=== PATIENT | female | born 1995 | race Caucasian/White ===

== ENCOUNTER 2023-12-03 23:42 | Emergency (ER) | payer SELFPAY ==
[2023-12-04] MEDS ORDERED: Ketorolac Tromethamine 30 MG (1 mL) VIAL ONE (00:31)
[2023-12-04] MEDS ORDERED: cefTRIAXone (ROCEPHIN) 1 GM VIAL ONE (00:31)
[2023-12-04] MEDS ORDERED: methylPREDNISolone Sod Succ/PF 125 MG/2 ML VIAL ONE (02:12)
[2023-12-04] MEDS ORDERED: Amoxicillin 250 mg/5 ml (250ML BOT) Oral Susp. PO SCH (02:15)
== END 2023-12-04 02:23 | disposition home or self-care (01) ==
LOC: CSHERS 23:42
DX: J02.9 Acute pharyngitis, unspecified (principal)
CPT/HCPCS: 96365; 96375; J0696; J1885; J2930